=== PATIENT | female | born 1990 | race African-American/Black ===

== ENCOUNTER 2018-06-08 08:29 | Emergency (ER) | payer OTHER ==
[~2018-06-08] VITALS: Ht 162.6 cm; Wt 104.8 kg
[2018-06-08 08:57] VITALS: BP 122/71
--- NOTE | 2018-06-08 09:16 | PHYS DOC ---
Past Medical History Past Medical History: Diabetes-Type II, Hypertension Additional Past Medical Histor: hypoglycemia, gallstones,migraines Past Surgical History: No Surgical History Additional Past Surgical Histo: right elbow Alcohol Use: None Drug Use: None Adult General Chief Complaint Chief Complaint: LOWER BACK PAIN OR INJURY [facility] HPI Patient is a 28 year old female presents to the ED complaining of back pain times one week ago. Patient states that she has had lower back pain for the last week. Describes the pain as sharp. Rates the pain as 8 out of 10. States she has been taking ibuprofen and muscle relaxers at home without relief. 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 States her pain is worse with range of motion. Denies bowel/bladder changes, saddle anesthesia, traumatic injury, fever , abdominal pain, diarrhea, chest pain, shortness of breath, dysuria, hematuria , or headache. Review of Systems Review of Systems Constitutional: Denies fever or chills [] Eyes: Denies change in visual acuity, redness, or eye pain [] HENT: Denies nasal congestion or sore throat [] Respiratory: Denies cough or shortness of breath [] Cardiovascular: No additional information not addressed in HPI [] GI: Denies abdominal pain, nausea, vomiting, bloody stools or diarrhea [] : Denies dysuria or hematuria [] Musculoskeletal: Complains of back pain. Denies joint pain [] Integument: Denies rash or skin lesions [] Neurologic: Denies headache, focal weakness or sensory changes [] All other systems were reviewed and found to be within normal limits, except as documented in this note. Allergies Allergies Allergies Coded Allergies Type Severity Reaction Last Updated Verified Penicillins Allergy Intermediate rash 05/14/13 Yes Physical Exam Physical Exam Constitutional: Well developed, well nourished, no acute distress, non-toxic appearance. [] HENT: Normocephalic, atraumatic Eyes: PERRLA, EOMI, conjunctiva normal, no discharge. [] Neck: Normal range of motion, no tenderness, supple, no stridor. [] Cardiovascular:Heart rate regular rhythm, no murmur [] Lungs & Thorax: Bilateral breath sounds clear to auscultation [] Abdomen: Bowel sounds normal, soft, no tenderness, no masses, no pulsatile masses. [] Skin: Warm, dry, no erythema, no rash. [] Back: Mild lumbar paraspinal tenderness. FROM. NV intact. No overlying skin changes. negative SLR, no CVA tenderness. [] Extremities: No tenderness, no cyanosis, no clubbing, ROM intact, no edema. [] Neurologic: Alert and oriented X 3, normal motor function, normal sensory function, no focal deficits noted. DTR's intact. [] Psychologic: Affect normal, judgement normal, mood normal. [] Current Patient Data Vital Signs Vital Signs Date Time Temp Pulse Resp B/P (MAP) Pulse Ox O2 Delivery O2 Flow Rate FiO2 06/08/18 08:57 97.9 86 18 122/71 (88) 99 97.9 EKG EKG [] Radiology/Procedures Radiology/Procedures []PROCEDURE: LUMBAR SPINE 2-3V Examination: 2 views of the lumbar spine HISTORY: History of back pain COMPARISON: None available. FINDINGS: The lumbar vertebral body heights are maintained. No evidence of listhesis identified. The facets are well aligned. Exaggerated lumbar lordosis identified. IMPRESSION: 1. Exaggerated lumbar lordosis. Otherwise no acute osseous findings. Course & Med Decision Making Course & Med Decision Making Pertinent Labs and Imaging studies reviewed. (See chart for details) []Discussed imaging findings with patient. Patient's pain improved in ED. States she is feeling much better. No focal neural deficits. Patient able to ambulate without assistance. Discussed symptomatic treatment and follow-up with orthopedics if pain persists. Provided contact information/education. Discussed reasons to return to the ED. Patient understands and agrees with plan. Dragon Disclaimer Dragon Disclaimer This electronic medical record was generated, in whole or in part, using a voice recognition dictation system. Departure Departure Impression: Primary Impression: Back pain Additional Impression: Muscle strain Disposition: 01 HOME, SELF-CARE Condition: IMPROVED Referrals: UNKNOWN PCP NAME (PCP) DANIEL BARNETT II, MD Patient Instructions: Back Pain, Adult, Muscle Strain Scripts Hydrocodone/Apap 5-325 (NORCO 5-325 TABLET) 1 Each Tablet 1 TAB PO BID for 4 Days, #8 TAB Prov: ALLYSON LOPEZ 06/08/18 Problem Qualifiers ALLYSON LOPEZ Jun 08, 2018 09:16
--- NOTE | 2018-06-08 10:04 | RAD ---
Examination: 2 views of the lumbar spine HISTORY: History of back pain COMPARISON: None available. FINDINGS: The lumbar vertebral body heights are maintained. No evidence of listhesis identified. The facets are well aligned. Exaggerated lumbar lordosis identified. IMPRESSION: 1. Exaggerated lumbar lordosis. Otherwise no acute osseous findings. Electronically signed by: Mat Alves MD (06/08/2018 10:01 AM) [id number]
[2018-06-08] MEDS ORDERED: HYDR-3164 PO (10:25)
== END 2018-06-08 10:45 | disposition home or self-care (01) ==
LOC: ER 08:29
DX: S39.012A Strain of muscle, fascia and tendon of lower back, initial encounter (principal); I10 Essential (primary) hypertension; G43.909 Migraine, unspecified, not intractable, without status migrainosus; E11.649 Type 2 diabetes mellitus with hypoglycemia without coma; Z88.0 Allergy status to penicillin; X58.XXXA Exposure to other specified factors, initial encounter; Y93.89 Activity, other specified; Y92.89 Other specified places as the place of occurrence of the external cause; Y99.8 Other external cause status
CPT/HCPCS: 72100; 99283

== ENCOUNTER 2018-08-26 17:29 | Emergency (ER) | payer OTHER ==
[~2018-08-26] VITALS: Ht 162.6 cm; Wt 95.3 kg
[~2018-08-26 17:29] MED LIST: HYDR-3164 PO
[2018-08-26 17:32] VITALS: BP 178/76
--- NOTE | 2018-08-26 17:42 | PHYS DOC ---
Past Medical History Past Medical History: Diabetes-Type II, Hypertension Additional Past Medical Histor: hypoglycemia, gallstones,migraines Past Surgical History: No Surgical History Additional Past Surgical Histo: right elbow Smoking: Cigarettes, Less than 1pk/day Alcohol Use: None Drug Use: None Adult General Chief Complaint Chief Complaint: FOREIGNBODY EAR HPI HPI Patient is a 28 year old who presents with foreign body in the R ear. She states that she broke a Q-tip off in her ear and this is been in her ear for 4 hours prior to arrival. It's her pain as 3 out of 10 sharp. Has not tried any interventions prior to arrival. States that her right ear has reduced hearing. Review of Systems Review of Systems Constitutional: Denies fever or chills [] Eyes: Denies change in visual acuity, redness, or eye pain [] HENT: Denies nasal congestion or sore throat. Reports R ear pain and foreign body, and reduced hearing in that ear. Respiratory: Denies cough or shortness of breath [] Cardiovascular: No additional information not addressed in HPI [] GI: Denies abdominal pain, nausea, vomiting, bloody stools or diarrhea [] : Denies dysuria or hematuria [] Musculoskeletal: Denies back pain or joint pain [] Integument: Denies rash or skin lesions [] Neurologic: Denies headache, focal weakness or sensory changes [] Endocrine: Denies polyuria or polydipsia [] Complete systems were reviewed and found to be within normal limits, except as documented in this note. Allergies Allergies Allergies Coded Allergies Type Severity Reaction Last Updated Verified Penicillins Allergy Intermediate rash 05/14/13 Yes Physical Exam Physical Exam Constitutional: Well developed, well nourished, no acute distress, non-toxic appearance. [] HENT: Normocephalic, atraumatic, bilateral external ears normal, has end of q- tip in her ear rob. oropharynx moist, no oral exudates, nose normal. [ Eyes: PERRLA, EOMI, conjunctiva normal, no discharge. [] Neck: Normal range of motion, no tenderness, supple, no stridor. [] Cardiovascular:Heart rate regular rhythm, no murmur [] Lungs & Thorax: Bilateral breath sounds clear to auscultation [] Abdomen: Bowel sounds normal, soft, no tenderness, no masses, no pulsatile masses. [] Skin: Warm, dry, no erythema, no rash. [] Back: No tenderness, no CVA tenderness. [] Extremities: No tenderness, no cyanosis, no clubbing, ROM intact, no edema. [] Neurologic: Alert and oriented X 3, normal motor function, normal sensory function, no focal deficits noted. [] Psychologic: Affect normal, judgement normal, mood normal. [] Current Patient Data Vital Signs Vital Signs Date Time Temp Pulse Resp B/P (MAP) Pulse Ox O2 Delivery O2 Flow Rate FiO2 08/26/18 17:32 98.2 85 18 178/76 (110) 98 Room Air 98.2 EKG EKG [] Radiology/Procedures Radiology/Procedures Pulled q-tip out of ear with alligator forceps. No complications.[] Course & Med Decision Making Course & Med Decision Making Pertinent Labs and Imaging studies reviewed. (See chart for details) Pulled q-tip out of ear. Educated patient on not using q-tips. Will d/c home. Dragon Disclaimer Dragon Disclaimer This electronic medical record was generated, in whole or in part, using a voice recognition dictation system. Departure Departure Impression: Primary Impression: Foreign body of ear, right Disposition: HOME, SELF-CARE Condition: STABLE Referrals: UNKNOWN PCP NAME (PCP) Patient Instructions: Ear Foreign Body Additional Instructions: Thank you for visiting [facility]. We appreciate you trusting us with your care. If any additional problems come up don't hesitate to return to visit us. Please follow up with your primary care provider so they can plan additional care if needed and know about the problem that you had. If symptoms worsen come back to the Emergency Department. Any concerning symptoms that start such as chest pain, shortness of Air, weakness or numbness on one side of the body, running high fevers or any other concerning symptoms return to the ER. Please stop using Q-tips in ear. Problem Qualifiers Primary Impression: Foreign body of ear, right Encounter type: initial encounter Qualified Codes: T16.1XXA - Foreign body in right ear, initial encounter BENNIE GREENE APRN Aug 26, 2018 17:42
== END 2018-08-26 17:57 | disposition home or self-care (01) ==
LOC: ER 17:29
DX: T16.1XXA Foreign body in right ear, initial encounter (principal); E11.9 Type 2 diabetes mellitus without complications; I10 Essential (primary) hypertension; G43.909 Migraine, unspecified, not intractable, without status migrainosus; F17.210 Nicotine dependence, cigarettes, uncomplicated; Z88.0 Allergy status to penicillin; X58.XXXA Exposure to other specified factors, initial encounter; Y93.89 Activity, other specified; Y92.89 Other specified places as the place of occurrence of the external cause; Y99.8 Other external cause status
CPT/HCPCS: 99284

== ENCOUNTER 2020-06-26 22:05 | Emergency (ER) | payer BC, OTHER ==
[~2020-06-26] VITALS: Ht 162.6 cm; Wt 125.0 kg
[2020-06-27 01:23] LABS: BASO % 0 % (0-3); EOS # 0.1 x10^3/uL (0.0-0.7); EOS % 1 % (0-3); HEMOGLOBIN 11.4 g/dL (12.0-15.5); LYMPH # 2.9 x10^3/uL (1.0-4.8); LYMPH % 33 % (24-48); MEAN CORPUSCULAR HEMOGLOBIN 32 pg (25-35); MEAN CORPUSCULAR HGB CONC 33 g/dL (31-37); MEAN CORPUSCULAR VOLUME 98 fL (79-100); MONO # 0.8 x10^3/uL (0.0-1.1); MONO % 9 % (0-9); NEUT # 4.9 x10^3/uL (1.8-7.7); NEUT % 56 % (31-73); PLATELET COUNT 263 x10^3/uL (140-400); RED BLOOD COUNT 3.57 x10^6/uL (3.50-5.40); RED CELL DISTRIBUTION WIDTH 13.4 % (11.5-14.5); WHITE BLOOD COUNT 8.7 x10^3/uL (4.0-11.0)
[2020-06-27 01:49] LABS: CALCIUM 8.4 mg/dL (8.5-10.1); CREATININE 0.9 mg/dL (0.6-1.0); GFR 87.8; POTASSIUM 3.9 mmol/L (3.5-5.1)
[2020-06-27 01:55] LABS: ALBUMIN 3.3 g/dL (3.4-5.0); MAGNESIUM 1.9 mg/dL (1.8-2.4); TOTAL BILIRUBIN 0.3 mg/dL (0.2-1.0); TOTAL PROTEIN 6.6 g/dL (6.4-8.2)
--- NOTE | 2020-06-27 02:25 | PHYS DOC ---
Past Medical History Past Medical History: Diabetes-Type II, Hypertension Additional Past Medical Histor: hypoglycemia, gallstones,migraines Past Surgical History: Cholecystectomy, Other Additional Past Surgical Histo: right elbow Smoking Status: Light Tobacco Smoker Alcohol Use: None Drug Use: None General Adult EDM: Chief Complaint: VAGINAL BLEEDING HPI: HPI: Patient is a 30 year old female who presented to ER due to vaginal bleeding sin ce earlier today. Patient says she is about 8 weeks . She denies any pelvic pain. Patient said when she wiped herself she noticed some blood on the tissue. Patient denies any fever, no abdominal pain, no cough, no nausea vomiting. Patient is under the care of Dr. Mohini Austin. Review of Systems: Review of Systems: Constitutional: Denies fever or chills. [] Eyes: Denies change in visual acuity. [] HENT: Denies nasal congestion or sore throat. [] Respiratory: Denies cough or shortness of breath. [] Cardiovascular: Denies chest pain or edema. [] GI: Denies abdominal pain, nausea, vomiting, bloody stools or diarrhea. [] : Denies dysuria. Positive for vaginal bleeding. Musculoskeletal: Denies back pain or joint pain. [] Integument: Denies rash. [] Neurologic: Denies headache, focal weakness or sensory changes. [] Endocrine: Denies polyuria or polydipsia. [] Lymphatic: Denies swollen glands. [] Psychiatric: Denies depression or anxiety. [] Heart Score: C/O Chest Pain: N/A Risk Factors: Risk Factors: DM, Current or recent (<one month) smoker, HTN, HLP, family history of CAD, obesity. Risk Scores: Score 0 - 3: 2.5% MACE over next 6 weeks - Discharge Home Score 4 - 6: 20.3% MACE over next 6 weeks - Admit for Clinical Observation Score 7 - 10: 72.7% MACE over next 6 weeks - Early Invasive Strategies Allergies: Allergies: Allergies Coded Allergies Type Severity Reaction Last Updated Verified Penicillins Allergy Intermediate rash 05/14/13 Yes Physical Exam: PE: Constitutional: Well developed, well nourished, no acute distress, non-toxic appearance. [] HENT: Normocephalic, atraumatic, bilateral external ears normal, oropharynx moist, no oral exudates, nose normal. [] Eyes: PERRLA, EOMI, conjunctiva normal, no discharge. [] Neck: Normal range of motion, no tenderness, supple, no stridor. [] Cardiovascular:Heart rate regular rhythm, no murmur [] Lungs & Thorax: Bilateral breath sounds clear to auscultation [] Abdomen: Bowel sounds normal, soft, no tenderness, no masses, no pulsatile masses. [] Skin: Warm, dry, no erythema, no rash. [] Back: No tenderness, no CVA tenderness. [] Extremities: No tenderness, no cyanosis, no clubbing, ROM intact, no edema. [] Neurologic: Alert and oriented X 3, normal motor function, normal sensory function, no focal deficits noted. [] Psychologic: Affect normal, judgement normal, mood normal. [] Current Patient Data: Labs: Laboratory Tests Test 06/26/20 22:35 06/27/20 00:35 POC Urine HCG, Qualitative Hcg positive (Negative) White Blood Count 8.7 x10^3/uL (4.0-11.0) Red Blood Count 3.57 x10^6/uL (3.50-5.40) Hemoglobin 11.4 g/dL (12.0-15.5) L Hematocrit 35.0 % (36.0-47.0) L Mean Corpuscular Volume 98 fL (79-100) Mean Corpuscular Hemoglobin 32 pg (25-35) Mean Corpuscular Hemoglobin Concent 33 g/dL (31-37) Red Cell Distribution Width 13.4 % (11.5-14.5) Platelet Count 263 x10^3/uL (140-400) Neutrophils (%) (Auto) 56 % (31-73) Lymphocytes (%) (Auto) 33 % (24-48) Monocytes (%) (Auto) 9 % (0-9) Eosinophils (%) (Auto) 1 % (0-3) Basophils (%) (Auto) 0 % (0-3) Neutrophils # (Auto) 4.9 x10^3/uL (1.8-7.7) Lymphocytes # (Auto) 2.9 x10^3/uL (1.0-4.8) Monocytes # (Auto) 0.8 x10^3/uL (0.0-1.1) Eosinophils # (Auto) 0.1 x10^3/uL (0.0-0.7) Basophils # (Auto) 0.0 x10^3/uL (0.0-0.2) Maternal Serum HCG Beta Subunit 1496 mIU/mL (0-5) H Sodium Level 143 mmol/L (136-145) Potassium Level 3.9 mmol/L (3.5-5.1) Chloride Level 106 mmol/L (98-107) Carbon Dioxide Level 27 mmol/L (21-32) Anion Gap 10 (6-14) Blood Urea Nitrogen 11 mg/dL (7-20) Creatinine 0.9 mg/dL (0.6-1.0) Estimated GFR (Cockcroft-Gault) 87.8 BUN/Creatinine Ratio 12 (6-20) Glucose Level 82 mg/dL (70-99) Calcium Level 8.4 mg/dL (8.5-10.1) L Magnesium Level 1.9 mg/dL (1.8-2.4) Total Bilirubin 0.3 mg/dL (0.2-1.0) Aspartate Amino Transferase (AST) 13 U/L (15-37) L Alanine Aminotransferase (ALT) 20 U/L (14-59) Alkaline Phosphatase 66 U/L (46-116) Total Protein 6.6 g/dL (6.4-8.2) Albumin 3.3 g/dL (3.4-5.0) L Albumin/Globulin Ratio 1.0 (1.0-1.7) Laboratory Tests 06/27/20 00:35 Laboratory Tests 06/27/20 00:35 Vital Signs: Vital Signs Date Time Temp Pulse Resp B/P (MAP) Pulse Ox O2 Delivery O2 Flow Rate FiO2 06/26/20 22:48 98.7 86 16 136/69 (91) 97 Room Air 98.7 EKG: EKG: [] Radiology/Procedures: Radiology/Procedures: [][facility] [address] [place] [address] IMAGING REPORT Signed PATIENT: ALBARO MONET ACCOUNT: [id number] : 1990 LOCATION: ER AGE: 30 SEX: F EXAM STATUS: REG ER ORD. PHYSICIAN: GANESH LEO DO REASON: 8WEEKS VAG BLEEDING TWINS PROCEDURE: US GRAVID UTERUS<14 WKS/ADD F OB ultrasound dated 06/27/2020. No comparison available. CLINICAL INDICATION: 8 weeks and vaginal bleeding. FINDINGS: Transabdominal and transvaginal imaging was performed. There is a diamniotic dic horionic twin gestation. Twin A crown-rump length measures 1.78 cm. Twin B crown-rump length measures 1.82 cm in length, correlating with an 8 week 2 day gestation. Gestational sacs unremarkable. No subchorionic collection. Yolk sacs are not visualized. There is no demonstrable cardiac activity at this time. Amniotic fluid volume appears appropriate. Placenta not well evaluated but appears to be posterior in location. Right ovary measures 3.0 x 2.1 x 2.1 cm. Left ovary measures 3.2 x 1.5 x 1.2 cm. No adnexal mass or free fluid. IMPRESSION: 1. There is a dichorionic diamniotic twin gestation with crown-rump lengths correlating with 8 week 2 day gestation. No demonstrable cardiac activity at this time. demise is possible, although viability cannot be completely excluded based twin gestation. Correlate with beta hCG values and follow-up imaging if indicated. Electronically signed by: Andrew Peña MD (06/27/2020 2:30 AM) [facility] [place]ATED and SIGNED BY: ANDREW PEÑA MD DATE: 06/27/20 [id number] 0 Course & Med Decision Making: Course & Med Decision Making Pertinent Labs and Imaging studies reviewed. (See chart for details) Patient is a 30-year-old who is about 8 weeks , presents to ER due to vaginal bleeding. Patient blood type is B+. Her hCG level is 1496. Pelvic ultrasound revealed intrauterine with twins , however there are no heart tone suspicious for demise..Discussed with her [facility] doctor, Dr. MOHINI AUSTIN, who recommended to discharge patient home, will follow up with her today or tomorrow. Brock Disclaimer: Brock Disclaimer: This electronic medical record was generated, in whole or in part, using a voice recognition dictation system. Departure Departure Impression: Primary Impression: Threatened in early Disposition: HOME / SELF CARE / HOMELESS Condition: STABLE Referrals: UNKNOWN PCP NAME (PCP) MOHINI AUSTIN Jr, MD please call your [facility] doctor today for follow up today or tomorrow. Patient Instructions: Threatened Miscarriage Additional Instructions: Thank you for visiting our Emergency Department. We appreciate you trusting us with your care. If any additional problems come up don't hesitate to return to visit us. Please follow up with your primary care provider so they can plan additional care if needed and know about the problem that you had. If symptoms worsen come back to the Emergency Department. Any concerning symptoms that start such as chest pain, shortness of air, weakness or numbness on one side of the body, running high fevers or any other concerning symptoms return to the ER. GANESH LEO DO Jun 27, 2020 02:25
--- NOTE | 2020-06-27 02:33 | RAD ---
OB ultrasound dated 06/27/2020. No comparison available. CLINICAL INDICATION: 8 weeks and vaginal bleeding. FINDINGS: Transabdominal and transvaginal imaging was performed. There is a diamniotic dichorionic twin gestati on. Twin A crown-rump length measures 1.78 cm. Twin B crown-rump length measures 1.82 cm in length, c orrelating with an 8 week 2 day gestation. Gestational sacs unremarkable. No subchorionic collection. Yolk sacs are not visualized. There is no demonstrable cardiac activity at this time. Amniotic fluid volume appears appropriate. Placenta not well evaluated but appears to be posterior in locatio n. Right ovary measures 3.0 x 2.1 x 2.1 cm. Left ovary measures 3.2 x 1.5 x 1.2 cm. No adnexal mass or f ree fluid. IMPRESSION: 1. There is a dichorionic diamniotic twin gestation with crown-rump lengths correlating with 8 week 2 day gestation. No demonstrable cardiac activity at this time. demise is possible, although viability cannot be completely excluded based twin gestation. Correlate with beta hCG values and follow-up imaging if indicated. Electronically signed by: Andrew Peña MD (06/27/2020 2:30 AM) [facility]
[2020-06-27 03:08] VITALS: BP 164/92
[2020-06-28] MEDS ORDERED: OXYC1TAB15 PO (23:23)
== END 2020-06-27 03:20 | disposition home or self-care (01) ==
LOC: ER 22:05
DX: O20.0 Threatened abortion (principal); I10 Essential (primary) hypertension; E11.649 Type 2 diabetes mellitus with hypoglycemia without coma; G43.909 Migraine, unspecified, not intractable, without status migrainosus; Z87.442 Personal history of urinary calculi; Z90.49 Acquired absence of other specified parts of digestive tract; Z98.890 Other specified postprocedural states; Z88.0 Allergy status to penicillin; Z3A.08 8 weeks gestation of pregnancy
CPT/HCPCS: 36415; 76802; 76817; 80053; 81025; 83735; 84702; 85025; 86900; 86901; 99284